=== PATIENT | female | born 1955 | race Caucasian/White ===

== ENCOUNTER 2019-01-09 07:31 | Day surgery (SDC) | payer BC ==
[~2019-01-09] VITALS: Ht 160 cm; Wt 139.4 kg
[2019-01-09] MEDS ORDERED: AMLODIPINE (08:24)
[2019-01-09] MEDS ORDERED: CLOBETASOL (08:24)
[2019-01-09] MEDS ORDERED: EFFEXOR (08:24)
[2019-01-09] MEDS ORDERED: LEVOTHYROXINE (08:24)
[2019-01-09] MEDS ORDERED: VENTOLIN PRN (08:24)
[2019-01-09] MEDS ORDERED: MOTRIN (08:24)
[2019-01-09 08:34] VITALS: Ht 160 cm; Wt 139.4 kg
[2019-01-09 08:35] VITALS: BP 154/68; PULSE 74; RESP 17
[2019-01-09] MEDS ORDERED: LIDOCAINE 100 MG SYRINGE ONE (08:38)
[2019-01-09] MEDS ORDERED: PROPOFOL 20 ML ONE (08:38)
--- NOTE | 2019-01-09 08:42 | PREAC ---
Date/Time of Note Date/Time of Note DATE: 01/09/19 TIME: 08:41 Anesthesia Eval and Record Evaluation Time Pre-Procedure Interview DATE: 01/09/19 TIME: 08:41 Age 63 Sex female NPO: 8 hrs Preoperative diagnosis SCREENING Planned procedure COLONOSCOPY Past Medical History Past Medical History: Includes Cardio: HTN Endo: Hypothyroid Pulm: Asthma GI: Morbid obesity Surgery & Anesthesia Issues No known issue Meds Anticoagulation: No Beta Neil within 24 hr: No Reason Beta Neil not given: Pt. not on B-Neil Reported Medications [Ventolin Prn] No Conflict Check 01/09/19 [Effexor] No Conflict Check 01/09/19 [Motrin] No Conflict Check 01/09/19 [Amlodipine] No Conflict Check 01/09/19 [Levothyroxine] No Conflict Check 01/09/19 [Clobetasol] No Conflict Check 01/09/19 Meds reviewed: Yes Allergies Coded Allergies: Penicillins (Verified Allergy, Unknown, 01/09/19) Sulfa (Sulfonamide Antibiotics) (Verified Allergy, Unknown, 01/09/19) codeine (Verified Allergy, Unknown, 01/09/19) promethazine (Verified Allergy, Unknown, 01/09/19) Allergies Reviewed: Yes Labs/Studies Labs Reviewed: Reviewed by anesthesiologist test: N/A Pre-procedure Exam Last vitals Vital Signs Date Temp Pulse Resp B/P (MAP) Pulse Ox O2 O2 Flow FiO2 Time Delivery Rate 01/09/19 97.9 74 17 154/68 94 Room Air 08:35 (96) Airway: Adequate mouth opening, Adequate thyromental dist Mallampati: Mallampati II Teeth: Normal Lung: Normal Heart: Normal ASA Physical Status ASA physical status: 3 Emergency: None Planned Anesthetic General/MAC: MAC Planned Pain Management Parenteral pain med Pre-operative Attestations Prior to commencing anesthesia and surgery, the patient was re-evaluated, there was verification of: *The patient's identity *The results of appropriate recent lab work and preoperative vital signs *The above evaluation not changing prior to induction *Anesthetic plan, risk benefits, alternative and complications discussed with patient/family; questions answered; patient/family understands, accepts and wishes to proceed. Ramo Wilson M.D. January 09, 2019 08:42
[2019-01-09 09:26] VITALS: BP 154/72; PULSE 68; RESP 18
--- NOTE | 2019-01-09 10:02 | PAC ---
Date/Time of Note Date/Time of Note DATE: 01/09/19 TIME: 10:02 Post-Anesthesia Notes Post-Anesthesia Note Last documented vital signs Vital Signs Date Temp Pulse Resp B/P (MAP) Pulse Ox O2 O2 Flow FiO2 Time Delivery Rate 01/09/19 97.9 74 17 154/68 94 Room Air 08:35 (96) Activity: WNL Respiratory function: WNL Cardiovascular function: WNL Mental status: Baseline Pain reasonably controlled: Yes Hydration appropriate: Yes Nausea/Vomiting absent: Yes Ramo Wilson M.D. January 09, 2019 10:02
== END 2019-01-09 11:07 | disposition home or self-care (01) ==
LOC: GIL 07:31
PROVIDERS: ATTEND Internal Medicine Gastroenterology
DX: Z12.11 Encounter for screening for malignant neoplasm of colon (principal); K64.8 Other hemorrhoids; I10 Essential (primary) hypertension; E03.9 Hypothyroidism, unspecified; K57.30 Diverticulosis of large intestine without perforation or abscess without bleeding; J45.909 Unspecified asthma, uncomplicated; E66.01 Morbid (severe) obesity due to excess calories; Z88.0 Allergy status to penicillin; Z88.2 Allergy status to sulfonamides
CPT/HCPCS: 45378; J2001; Z7610

== ENCOUNTER → 2019-01-15 | Outpatient (CLI) | payer BC ==
[~2019-01-15] MED LIST: AMLODIPINE; CLOBETASOL; EFFEXOR; LEVOTHYROXINE; MOTRIN; VENTOLIN PRN
--- NOTE | 2019-01-15 18:12 | CONS ---
Assessment/Plan Assessment/Plan Hospital Course (Demo Recall) This is a 63-year-old female with end-stage osteoarthritis of bilateral knees. The patient has not exhausted all conservative treatment options at this point. Her last injection was many years ago. In addition she is not a good surgical candidate as her risk-benefit profile does not favor her. Her morbid obesity with a BMI of 53.2 puts her at significant perioperative risks especially infection. Given this she would need to lose a significant amount of weight to have a BMI of 40 or less prior to surgery. Patient was counseled on weight loss for 15 minutes. Different methods of weight loss were discussed including water aerobics, dieting, seeing a dietitian/head loft worker, having referral to bariatric surgeon Plan: Weight loss submit authorization for bilateral knee steroid injections Follow-up after steroid injection authorization Consultation Date/Type/Reason Admit Date/Time Date of Consultation: January 15, 2019 Reason for Consultation Bilateral knee pain Date/Time of Note DATE: 01/15/19 TIME: 18:04 Hx of Present Illness This is a 63-year-old female with a chief complaint of right and left knee pain. The pain is worse in the left knee. The pain began approximately 10 years ago. The patient's pain is in the anterior, medial, lateral aspect of the right and left knee. Pain is not radiating to the lower leg. The pain is rated as a 10/10. Patient denies complaints of numbness or tingling. The pain is exacerbated by climbing stairs and ambulation. Pain is not relieved by NSAID's. Patient has been taking ibuprofen on a p.r.n. basis as well as using ice. ----- Duration: Years Injury: No Walking tolerance: Less than 1 block Limp: Yes Support: Cane and walker Swelling: Yes Crepitation: Yes Instability: No Stairs: Avoids Physical Therapy: No Injections: Yes, many years ago NSAID's: Ibuprofen Prior surgery: no Back pain: Yes, sciatica Hip pain: No Risk of AVN : Yes. Patient was on prednisone multiple times for asthma exacerbations Patient denies fever, chills, shortness of breath, chest pain, nausea/vomiting, constipation, diarrhea, numbness, and tingling. Past Medical History Hypertension Asthma Kidney stones hypothyroidism Depression Fibromyalgia Psoriasis History of abscess History of cellulitis Home Meds Reported Medications [Ventolin Prn] No Conflict Check 5/2/19 [Effexor] No Conflict Check 01/09/19 [Motrin] No Conflict Check 01/09/19 [Amlodipine] No Conflict Check 01/09/19 [Levothyroxine] No Conflict Check 01/09/19 [Clobetasol] No Conflict Check 01/09/19 Allergies: Coded Allergies: Penicillins (Verified Allergy, Unknown, 01/09/19) Sulfa (Sulfonamide Antibiotics) (Verified Allergy, Unknown, 01/09/19) codeine (Verified Allergy, Unknown, 01/09/19) promethazine (Verified Allergy, Unknown, 01/09/19) Past Surgical History Cholecystectomy 1985 Right total shoulder 2016 Family History Significant Family History: no pertinent family hx Social History Alcohol Use: none Smoking Status: Never smoker Drug Use: none Exam/Review of Systems Exam Vitals Weight: 310 pounds Height: 5 feet 4 inches BMI: 53.2 Temperature: 98.8 Heart Rate: 76 Blood Pressure: 143/60 Respiratory Rate: 14 Exam General: Awake, alert, in no acute distress, pleasant and cooperative Heart: regular rhythm Lungs: breathing comfortably, no tachypnea or dyspnea MUSCULOSKELETAL: Right and Left Knee This is a well developed morbidly obese female who is alert, oriented times three and in no apparent distress. Skin is intact over the right and left knee as well as the lower extremity with no abrasions, lacerations, or ulcerations. Observation of the patient's gait reveals a significantly antalgic gait with varus thrust. Frontal plane alignment is varus on the right and left knees. There is pain on palpation of medial and anterior joint line. The patient demonstrates grinding anteriorly with ROM. Range of motion: 40 extension to approximately 80 degrees of flexion. Collateral ligament testing was difficult secondary to body habitus but did not reveal any gross instability with varus or valgus stress at 0 and 30 degrees of flexion. Negative Kimi's and negative posterior drawer. Neurovascularly intact with 5/5 EHL/tibialis anterior/gastroc. Sensation intact to light touch in a sural, saphenous, deep peroneal, superficial peroneal, medial and lateral plantar nerve distribution. Palpable, symmetric dorsalis pedis and posterior tibial pulses in both lower extremities. Hip examination normal Imaging Imaging 2 views of bilateral knees from outside facility were brought in and personally reviewed. Demonstrate severe bilateral tricompartmental arthritis with complete loss of joint space in the medial compartment. No fracture. No acute complication. EVELIN LAI MD January 15, 2019 18:12
== END | disposition home or self-care (01) ==
LOC: HKI 14:18
PROVIDERS: ATTEND Orthopaedic Surgery Adult Reconstructive Orthopaedic Surgery
DX: M25.561 Pain in right knee (principal); M25.562 Pain in left knee
CPT/HCPCS: G0463

== ENCOUNTER → 2019-03-05 | Outpatient (CLI) | payer BC ==
--- NOTE | 2019-03-05 14:22 | CONS ---
Consult Date/Type/Reason Admit Date/Time Initial Consult Date Date/Time of Note DATE: 03/05/19 TIME: 14:18 Subjective 63-year-old female follows up today for bilateral knee steroid injections. She was previously seen for severe end-stage bilateral knee osteoarthritis. She has not exhausted all conservative treatment options. In addition she is morbidly obese and was counseled at last visit of the importance of weight loss in order to perform total knee arthroplasty safely. She denies any changes since last visit. Objective Vitals Weight: 310 pounds Height: 5 feet 4 inches BMI: 53.2 Temperature: 98.6 Heart Rate: 84 Blood Pressure: 128/56 Respiratory Rate: 14 Exam General: Awake, alert, in no acute distress, pleasant and cooperative Heart: regular rhythm Lungs: breathing comfortably, no tachypnea or dyspnea MUSCULOSKELETAL: Bilateral lower extremity: Skin is intact. There is no erythema. The knees are obese. Joint difficult to palpate. Sensation intact to light touch in a sural, saphenous, deep peroneal, superficial peroneal, medial and lateral plantar nerve distribution. Motor is intact, patient able to dorsiflex and plantarflex ankle and extend and flex great toe. Dorsalis Pedis pulse +2, Brisk capillary refill. Compartments are soft. Calves non-tender to palpation bilaterally. Results/Medications Home Meds Reported Medications [Ventolin Prn] No Conflict Check 01/09/19 [Effexor] No Conflict Check 01/09/19 [Motrin] No Conflict Check 01/09/19 [Amlodipine] No Conflict Check 01/09/19 [Levothyroxine] No Conflict Check 01/09/19 [Clobetasol] No Conflict Check 01/09/19 Assessment/Plan Hospital Course (Demo Recall) 63-year-old female with end-stage bilateral knee osteoarthritis. Patient was counseled on weight loss including seeing a dietitian, pool therapy, weight loss programs, being referred to bariatric surgeon. Explained the patient that significant weight loss will help her pain as well as allow future surgery to be done safely. Currently she is not a good surgical candidate. Recommend continued conservative treatment. Plan: Bilateral knee steroid injection Weight loss Ice Low impact activities Follow-up PRN Assessment/Plan (Daily) Bilateral knee steroid injection procedure: Risks and benefits of steroid injection reviewed with patient. The risks include infection, failure, pain, swelling, nerve/tendon/ligament damage. The patient verbalized understanding and verbal consent was obtained prior to procedure. Bilateral knees were prepped in a sterile fashion with alcohol and betadine the site of injection was confirmed. Anteromedial approach was used. The skin and capsule was anesthetized with 3mL 1% lidocaine. Bilateral knees were each injected with 2mL 1% lidocaine, 2mL 0.25% bupivacaine, 40mg Depo-Medrol. Injection flowed freely. Good hemostasis was achieved and no complications noted. The patient tolerated the procedure well. Limit activity and ice for 24- 48 hours. EVELIN LAI MD Mar 05, 2019 14:22
== END | disposition home or self-care (01) ==
LOC: HKI 14:13
PROVIDERS: ATTEND Orthopaedic Surgery Adult Reconstructive Orthopaedic Surgery
DX: M17.0 Bilateral primary osteoarthritis of knee (principal)
CPT/HCPCS: 20610; Z7500; Z7610; G0463

== ENCOUNTER 2019-04-30 07:00 | Day surgery (SDC) | payer BC ==
[~2019-04-30] VITALS: Ht 162.6 cm; Wt 138.7 kg
[2019-04-30] VITALS (10 sets, daily range): BP systolic 147–165; BP diastolic 65–78; PULSE 62–67; RESP 13–23; Ht 162.6 cm; Wt 138.7 kg
[~2019-04-30 07:00] MED LIST changes: +ACETAMINOPHEN 500 MG TAB PO ONE; +ACETAZOLAMIDE 250 MG TAB PO PRN; +AMLO5TAB4 PO; +APRACLONIDINE 1% 0.1 ML OPH OPER PRN; +BALANCED SALT SOLN OPH IRRIG 500 ML, EPINEPHrine 0.1 MG, GENTAMICIN 4 MG, VANCOMYCIN 10 MG IRR SCH; +LEVO25TA50 PO; +LIDOCAINE 4% (MPF) 5 ML INJ INJ SCH; +NEOMYC/POLYMYX/DEXAM 3.5GM OPH OINT OPER ONE; +PHENYLephrine 2.5% 15 ML OPH OPER SCH; +TROPICAMIDE 1% 15 ML OPH OPER SCH; +VENL75TA2 PO
[2019-04-30] MEDS: TETRACAINE 0.5% 4 ML OPH OPER SCH ×2 (07:49→10:34)
[2019-04-30] MEDS ORDERED: TOBRAMYCIN/DEXAMETH 3.5 GM OPH OINT ONE (09:20)
[2019-04-30] MEDS ORDERED: EPINEPHrine 1 MG INJ ONE (09:20)
[2019-04-30] MEDS ORDERED: CARBACHOL 0.01% 1.5 ML OPH INJ ONE (09:20)
[2019-04-30] MEDS ORDERED: LIDOCAINE 4% (MPF) 5 ML INJ ONE (09:20)
[2019-04-30] MEDS ORDERED: TRYPAN BLUE 0.5 ML SYG IO ONE (09:20)
[2019-04-30] MEDS ORDERED: FENTAnyl 50 MCG/ML VIAL ONE ×2 (09:54→10:26)
[2019-04-30] MEDS ORDERED: MIDAZOLAM 1 MG/ML 2 ML INJ ONE ×2 (09:54→10:18)
[2019-04-30] MEDS ORDERED: DIPHENHYDRAMINE 50 MG INJ IV PRN (10:00)
[2019-04-30] MEDS ORDERED: LABETALOL HCL 20MG INJ IV PRN (10:00)
[2019-04-30] MEDS ORDERED: ACETAMINOPHEN 325 MG TAB PO PRN (10:00)
[2019-04-30] MEDS ORDERED: ONDANSETRON 4 MG INJ IV PRN (10:00)
[2019-04-30] MEDS ORDERED: ALBUTEROL 0.083% (NEB) 2.5 MG/3 ML AMP HHN PRN (10:00)
[2019-04-30] MEDS ORDERED: hydrALAzine 20 MG INJ IV PRN (10:00)
[2019-04-30] MEDS ORDERED: FENTAnyl 50 MCG/ML VIAL IV PRN (10:00)
[2019-04-30] MEDS ORDERED: METOPROLOL 5 MG INJ ONE (10:07)
== END 2019-04-30 11:55 | disposition home or self-care (01) ==
LOC: SDS 07:00
PROVIDERS: ATTEND Ophthalmology
DX: H25.11 Age-related nuclear cataract, right eye (principal); I10 Essential (primary) hypertension; J45.909 Unspecified asthma, uncomplicated; E66.01 Morbid (severe) obesity due to excess calories
CPT/HCPCS: 66984; J2250; J3010; V2632; Z7512; Z7610; J0171; J1580; J3370